=== PATIENT | female | born 1985 | race Caucasian/White ===

== ENCOUNTER → 2019-12-15 15:50 | Outpatient (BNVA) | payer BC, SELFPAY | PROVIDERS: Family Provider Family Medicine; PCP Family Medicine; Visit Provider Obstetrics & Gynecology | DX: N90.89 Other specified noninflammatory disorders of vulva and perineum (principal); N89.8 Other specified noninflammatory disorders of vagina | CPT/HCPCS: 87070 ==

== ENCOUNTER → 2019-12-24 10:38 | Outpatient (BNVA) | payer BC, SELFPAY | PROVIDERS: Family Provider Family Medicine; PCP Family Medicine; Visit Provider Obstetrics & Gynecology | DX: R10.32 Left lower quadrant pain (principal) | CPT/HCPCS: 76830 ==

== ENCOUNTER → 2020-01-20 11:57 | Outpatient (BNVA) | payer BC, SELFPAY | PROVIDERS: Family Provider Family Medicine; PCP Family Medicine; Visit Provider Obstetrics & Gynecology | DX: N90.89 Other specified noninflammatory disorders of vulva and perineum (principal) | CPT/HCPCS: 88305 ==

== ENCOUNTER 2020-10-07 21:06 | Emergency (ER) | payer BC, SELFPAY ==
[2020-10-07 21:13] VITALS: BP 155/98; PULSE 77; RESP 16; TEMP 36.6; O2SAT 99; BMI 18.3
--- NOTE | 2020-10-07 21:26 | XRR_ITS ---
PROCEDURE INFORMATION: Exam: XR Chest, 1 View Exam date and time: 10/07/2020 9:33 PM Age: 35 years old Clinical indication: Shortness of breath; Chest pain; Type not specified; Additional info: Cp, SOB, elevated BP TECHNIQUE: Imaging protocol: XR of the chest Views: 1 view. COMPARISON: No relevant prior studies available. FINDINGS: Lungs: Unremarkable. No consolidation. Pleural spaces: Unremarkable. No pleural effusion. No pneumothorax. Heart/Mediastinum: Unremarkable. No cardiomegaly. Bones/joints: Unremarkable. XR/XR chest 1V portable [id number] IMPRESSION: No acute findings.
--- NOTE | 2020-10-07 21:26 | ECG_ITS ---
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 Measurements Intervals [place] Rate: 68 P: 78 IL: 154 QRS: 59 QRSD: 86 T: 22 QT: 383 QTc: 410 Interpretive Statements SINUS RHYTHM WITH OCCASIONAL SUPRAVENTRICULAR PREMATURE COMPLEXES MODERATE T-WAVE ABNORMALITY, CONSIDER INFERIOR ISCHEMIA [-0.1+ mV T WAVE IN II/aVF] No previous ECG available for comparison Electronically Signed On 10-08-2020 16:05:35 CRAB CATCHER by Kendall Grissom M.D. [id number] f
== END 2020-10-08 00:01 ==
LOC: ER 22:10
PROVIDERS: PCP Family Medicine
DX: Z53.21 Procedure and treatment not carried out due to patient leaving prior to being seen by health care provider (principal)
CPT/HCPCS: 71045; 93005; 99281

== ENCOUNTER 2020-10-08 08:52 | Outpatient (CLI) | payer BC, SELFPAY ==
--- NOTE | 2020-10-08 09:00 | CT_ITS ---
WS: [id number] CTA THORACIC AORTA WITH CONTRAST. HISTORY: DYSPNEA TECHNIQUE: CT imaging of the thorax is performed with and without contrast. After noncontrast imaging is performed, CT angiogram is performed during injection of Omnipaque 350; 95 mL IV.. Sagittal and c oronal reconstructions, sagittal and coronal MIP imaging is submitted. All CT scans at [facility] use at least one of these dose optimization techniques: automated exposure control; mA and/o r kV adjustment per patient size (includes targeted exams where dose is matched to clinical indicatio n); or iterative reconstruction. DLP: 332.38 mGy.cm COMPARISON: None available. Normal size thoracic aorta. No aneurysm or dissection. No significant plaque. Good opacification of t he pulmonary artery. Normal size pulmonary artery with no filling defects. Heart size is normal. No p ericardial or pleural effusions. No thrombus in the LEFT atrial appendage. Normal aortic arch in norm al great vessel origins. Lungs are clear. No pneumonia or CHF. No groundglass opacifications or bronchiectasis. Bronchial airw ays normal. Normal bronchial tree. CT/CT angio chest [id number] IMPRESSION: 1. Normal thoracic aorta. 2. Normal pulmonary artery. 3. No pneumonia. Normal lungs.
[2020-10-08] MEDS: iohexol 350 mg/mL 100 mL Btl IV (09:32)
== END 2020-10-08 08:53 | disposition home or self-care (01) ==
LOC: RADWPI 08:58
PROVIDERS: PCP Family Medicine; Visit Provider Family Medicine
DX: R06.00 Dyspnea, unspecified (principal)
CPT/HCPCS: 71275; Q9967

== ENCOUNTER → 2021-07-29 08:45 | Outpatient (BNVA) | payer OTHER, BC, SELFPAY | PROVIDERS: PCP Family Medicine; Visit Provider Obstetrics & Gynecology | DX: N89.8 Other specified noninflammatory disorders of vagina (principal) | CPT/HCPCS: 82670; 83001 ==

== ENCOUNTER → 2022-08-02 11:47 | Outpatient (BNVA) | payer BC, SELFPAY | PROVIDERS: PCP Family Medicine; Visit Provider Family Medicine | DX: E03.9 Hypothyroidism, unspecified (principal) | CPT/HCPCS: 84443 ==

== ENCOUNTER 2023-07-24 16:01 | Outpatient (CLI) | payer OTHER, SELFPAY ==
[2023-07-24 22:43] LABS: Thyroid Stimulating Hormone 2.21 uIU/mL (0.27-4.20)
== END 2023-07-24 16:02 | disposition home or self-care (01) ==
LOC: LAB 16:01
PROVIDERS: PCP Family Medicine; Visit Provider Family Medicine
DX: E03.9 Hypothyroidism, unspecified (principal)
CPT/HCPCS: 36415; 84443

== ENCOUNTER → 2023-08-17 07:20 | Outpatient (BNVA) | payer OTHER, SELFPAY | PROVIDERS: PCP Family Medicine; Visit Provider Clinical Nurse Specialist Adult Health | DX: R30.0 Dysuria (principal); N30.00 Acute cystitis without hematuria | CPT/HCPCS: 81000 ==

== ENCOUNTER → 2023-10-23 14:47 | Outpatient (BNVA) | payer OTHER, SELFPAY | PROVIDERS: PCP Family Medicine; Visit Provider Nurse Practitioner Women's Health | DX: I49.9 Cardiac arrhythmia, unspecified (principal); R07.9 Chest pain, unspecified | CPT/HCPCS: 93005 ==

== ENCOUNTER 2023-10-24 07:22 | Emergency (ER) | payer OTHER, SELFPAY ==
[2023-10-24 07:26] VITALS: BP 158/107; PULSE 93; RESP 18; TEMP 36.6; O2SAT 100; BMI 18.3
--- NOTE | 2023-10-24 07:28 | ECG_ITS ---
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 Measurements Intervals [place] Rate: 91 P: 75 ID: [id number] QRS: 44 QRSD: 74 T: -3 QT: 350 QTc: 432 Interpretive Statements SINUS RHYTHM WITH FREQUENT SUPRAVENTRICULAR PREMATURE COMPLEXES POSSIBLE LEFT ATRIAL ENLARGEMENT [-0.1mV P-WAVE IN V1/V2] SEPTAL MYOCARDIAL INFARCTION , PROBABLY OLD [40+ ms Q WAVE IN V1/V2] INTERPRETATION BASED ON A DEFAULT AGE OF 40 YEARS Compared to ECG 10/23/2023 15:04:48 Myocardial infarct finding now present Electronically Signed On 10-24-2023 14:33:25 FOOD COUNSELOR by Bret Rosenthal M.D. [id number]
[2023-10-24 07:34] VITALS: BP 158/107; PULSE 94; RESP 17; O2SAT 99
--- NOTE | 2023-10-24 07:34 | XRR_ITS ---
PROCEDURE INFORMATION: Exam: XR Chest Exam date and time: 10/24/2023 7:51 AM Age: 38 years old Clinical indication: Cough and dyspnea; Additional info: Dyspnea/cough TECHNIQUE: Imaging protocol: Radiologic exam of the chest. Views: 1 view. COMPARISON: CT angio chest [id number] 10/08/2020 9:44 AM FINDINGS: Lungs: Unremarkable. No consolidation. Pleural spaces: Unremarkable. No pleural effusion. No pneumothorax. Heart/Mediastinum: Unremarkable. No cardiomegaly. Bones/joints: Unremarkable. XR/XR chest 1V portable [id number] IMPRESSION: No acute findings.
[2023-10-24 07:46] LABS: Basophils # 0.1 10^3/uL (0.0-0.1); Basophils % 0.9 %; Eosinophils # 0.1 10^3/uL (0.0-0.8); Eosinophils % 2.4 %; Hematocrit 42.3 % (36-47); Lymphocytes # 1.8 10^3/uL (0.8-4.8); Lymphocytes % 31.3 %; Mean Corpuscular HGB Conc 34.5 g/dL (30-55); Mean Corpuscular Hemoglobin 30.9 pg (27-33); Mean Corpuscular Volume 89.4 fl (85-98); Mean Platelet Volume 10.7 fL (7.4-10.4); Monocytes # 0.3 10^3/uL (0.2-0.9); Monocytes % 4.3 %; Neutrophils # 3.56 10^3/uL (1.8-7.7); Neutrophils % 60.9 %; Nucleated Red Blood Cells % 0 %; Platelet Count 305 10^3/cmm (157-399); Red Blood Count 4.73 10^6/uL (3.85-5.65); Red Cell Distribution Width 11.8 % (12.1-15.1); White Blood Count 5.84 10^3/uL (3.29-11.43)
[2023-10-24 08:05] LABS: Troponin(5th) Baseline < 6 ng/L (0-10)
[2023-10-24 08:07] LABS: Alanine Aminotransferase 15 U/L (0-33); Albumin Level 4.6 g/dL (3.5-5.2); Alkaline Phosphatase 60 U/L (35-105); Anion Gap 15.1 (5-19); Aspartate Amino Transferase 15 U/L (0-32); Blood Urea Nitrogen 13 mg/dL (6-20); Carbon Dioxide 24 mmol/L (22-29); Chloride 103 mmol/L (98-107); Creatinine Clr Calc Pharmacy 116.0903; Globulin 2.6 g/dL (1.3-4.6); Glomerular Filtration Rate 138.1 mL/min (90-130); Glucose 114 mg/dL (65-115); Osmolality Calculated 287 mOsm/kg (285-295); Potassium 4.1 mmol/L (3.5-5.1); Sodium 138 mmol/L (136-145); Total Bilirubin 0.9 mg/dL (0.15-1.2); Total Protein 7.2 g/dL (6.6-8.7)
--- NOTE | 2023-10-24 08:25 | W.ED.CHESTPA ---
HPI - Chest Pain General: Chief Complaint: Chest Pain Stated Complaint: chest pain Source: patient Mode of arrival: ambulatory History of Present Illness: 38-year-old female presents to the emergency room complaint of chest pain. Localizes pain to the upper chest along the left parasternal border. Has had similar episodes in the past was thought to be anxiety issues. Pain has been constant last couple of days and is worsening slightly no radiation of the pain no associated shortness of breath no nausea vomiting or diaphoresis. No history of DVT or PE. She was recently seen by nurse practitioner for gynecology and reported having intermittent irregular heartbeat. Here on the monitor she has occasional PVCs. She has no knowledge of her family history as pertaining to coronary artery disease. She previously had a left breast mass noted on physical exam and had a follow-up mammogram at [facility] and it was thought to be benign on follow-up in her doctor's office there was no significant change. She denies any recent fever sweats chills or productive cough. Patient did report a headache overnight for which she took a sumatriptan for which she has used in the past. MD complaint: chest pain Onset (ago): day(s) Prior episodes: Yes Onset: during rest Pain location: left chest Pain radiation: none Quality: sharp Relieving factors: nothing Exacerbating factors: nothing Associated symptoms: Deny abdominal pain, diaphoresis, dyspnea, fever(s), leg edema, nausea, palpitations, sense of impending doom, syncope or vomiting Treatment prior to arrival: none Review of Systems Const: Denies: fever(s), chills or diaphoresis Card: Denies: chest pain, palpitations or syncope Resp: Denies: dyspnea GI: Denies: abdominal pain, nausea or vomiting : Denies: dysuria, urinary frequency or urinary urgency Musc: Denies: neck pain or back pain Skin/Breast: Denies: rash PFSH ED PFSH: Medical History Migraines Currently taking medication-sumatriptan and amitriptyline for migraines being managed by Dr. Porras. She also sees a neurologist Dr. Tijerina In [facility]. No pertinent past medical history Denies diabetes, asthma, hypertension, seizures, DVT/PE. PCP: Dr. Porras Hypothyroidism Diagnosed in her 20s and is currently on medication managed by her primary care provider Surgical History S/P hysterectomy (~2009) laparoscopic assisted vaginal hysterectomy and cystoscopy for endometriosis, enlarged uterus, menorrhagia, dysmenorrhea. Performed by Dr. Subramanian at the anovulatory surgical center. ---->Pathology showed cervix-normal, cul-de-sac peritoneum-normal, lower uterine segment/endocervical canal-normal, endometrium-proliferative endometrium, myometrium-normal, uterus weighed 122 g. ---->(Operative report and pathology have been scanned into all scripts. S/P tonsillectomy and adenoidectomy Done at age 5 Family History Unknown Unknown family medical history Patient does not know her biological family or her family history. Physical Exam Const: COMMON NORMALS: no acute distress GENERAL APPEARANCE: cooperative and comfortable ORIENTATION/CONSCIOUSNESS: Yes awake, Yes oriented to person, Yes oriented to place and Yes oriented to time HENMT: COMMON NORMALS: normocephalic, atraumatic and hearing grossly normal bilaterally HEAD & SCALP: normocephalic and atraumatic Resp: COMMON NORMALS: normal respiratory effort, No retractions, No use of accessory muscles and clear to auscultation bilaterally AUSCULTATION: clear to auscultation bilaterally Cardio: COMMON NORMALS: regular rate, regular rhythm and No murmurs present (Cardio) RATE: regular rate RHYTHM: regular rhythm GI: COMMON NORMALS: Soft to palpation and No hepatosplenomegaly present AUSCULTATION: Yes normoactive bowel sounds PALPATION: Yes Soft to palpation, No Tenderness to palpation present (GI), No Guarding due to palpation present (GI) and Yes No hepatosplenomegaly present Extremity: COMMON NORMALS: normal to inspection, capillary refill normal, no clubbing, cyanosis or edema, no calf tenderness and no pedal edema Neuro: SENSORIUM/ORIENTATION: Yes oriented to person, Yes oriented to place and Yes oriented to time Skin: COMMON NORMALS: no rashes or lesions noted GENERAL SKIN EXAM: no rashes or lesions noted Course Vital Signs: Vital signs: Vital Signs Temperature 97.9 F 10/24/23 07:26 Pulse Rate 85 10/24/23 11:17 Respiratory Rate 18 10/24/23 11:17 Blood Pressure 122/82 10/24/23 11:17 Pulse Oximetry 96 10/24/23 11:17 Oxygen Delivery Me thod Room Air 10/24/23 07:34 MDM - Chest Pain Medical Decision Making Labs and imaging reviewed. EKG does not show any acute ST changes on the rhythm strip we did see a fair number of PVCs and ectopic atrial foci however she is completely asymptomatic over the whole time she is here. Reviewed the findings with the patient. She does have a bit of a headache as well we gave her Toradol and Benadryl before she left. Given the overall findings recommend just observing. I think her chest pain is noncardiac there is no evidence of a PE your D-dimer is low her heart rate and oxygen saturations are low. Chest x-ray was otherwise unremarkable with no evidence of pneumothorax or pneumonia. There is no widening of the mediastinum. Patient is comfortable this will discharge home and follow-up with her primary care doc if she has palpitations she can consider discussing with her primary care doctor and get a Holter monitor done. Medical Records I reviewed the patient's medical records. Lab Data I reviewed the patient's lab results. 10/24/23 07:34 10/24/23 07:34 Radiology Impressions Chest X-Ray 10/24/23 07:34 IMPRESSION: No acute findings. Laboratory Results WBC 5.84 10^3/uL (3.29-11.43) 10/24/23 07:34 RBC 4.73 10^6/uL (3.85-5.65) 10/24/23 07:34 Hgb 14.60 g/dL (11.27-16.99) 10/24/23 07:34 Hct 42.3 % (36-47) 10/24/23 07:34 MCV 89.4 fl (85-98) 10/24/23 07:34 MCH 30.9 pg (27-33) 10/24/23 07:34 MCHC 34.5 g/dL (30-55) 10/24/23 07:34 RDW 11.8 % (12.1-15.1) L 10/24/23 07:34 Plt Count 305 10^3/cmm (157-399) 10/24/23 07:34 MPV 10.7 fL (7.4-10.4) H 10/24/23 07:34 Neut % (Auto) 60.9 % 10/24/23 07:34 Lymph % (Auto) 31.3 % 10/24/23 07:34 Boundary % (Auto) 4.3 % 10/24/23 07:34 Eos % (Auto) 2.4 % 10/24/23 07:34 Baso % (Auto) 0.9 % 10/24/23 07:34 Neut # (Auto) 3.56 10^3/uL (1.8-7.7) 10/24/23 07:34 Lymph # (Auto) 1.8 10^3/uL (0.8-4.8) 10/24/23 07:34 Boundary # (Auto) 0.3 10^3/uL (0.2-0.9) 10/24/23 07:34 Eos # (Auto) 0.1 10^3/uL (0.0-0.8) 10/24/23 07:34 Baso # (Auto) 0.1 10^3/uL (0.0-0.1) 10/24/23 07:34 Nucleated RBC % (auto) 0 % 10/24/23 07:34 Nucleated RBCs # 0.0 /100WBC 10/24/23 07:34 D-Dimer 0.36 ug/mLFEU (0-0.59) 10/24/23 07:34 Sodium 138 mmol/L (136-145) 10/24/23 07:34 Potassium 4.1 mmol/L (3.5-5.1) 10/24/23 07:34 Chloride 103 mmol/L (98-107) 10/24/23 07:34 Carbon Dioxide 24 mmol/L (22-29) 10/24/23 07:34 Anion Gap 15.1 (5-19) 10/24/23 07:34 BUN 13 mg/dL (6-20) 10/24/23 07:34 Creatinine 0.5 mg/dL (0.5-0.9) 10/24/23 07:34 GFR Calculation 138.1 mL/min (90-130) H 10/24/23 07:34 Glucose 114 mg/dL (65-115) 10/24/23 07:34 Calculated Osmolality 287 mOsm/kg (285-295) 10/24/23 07:34 Calcium 9.0 mg/dL (8.5-10.5) 10/24/23 07:34 Total Bilirubin 0.9 mg/dL (0.15-1.2) 10/24/23 07:34 AST 15 U/L (0-32) 10/24/23 07:34 ALT 15 U/L (0-33) 10/24/23 07:34 Alkaline Phosphatase 60 U/L (35-105) 10/24/23 07:34 Troponin T Baseline < 6 ng/L (0-10) 10/24/23 07:34 Troponin T 120 Minute 6.00 ng/L (0-10) 10/24/23 09:42 Delta Troponin T 0.60562 ABS# (0-10) 10/24/23 09:42 Total Protein 7.2 g/dL (6.6-8.7) 10/24/23 07:34 Albumin 4.6 g/dL (3.5-5.2) 10/24/23 07:34 Globulin 2.6 g/dL (1.3-4.6) 10/24/23 07:34 All radiology interpretation(s) finalized by discharge Discharge Plan Discharge Patient Disposition: Home Clinical Impression: Atypical chest pain, Frequent PVCs Migraines Qualifiers: Migraine type: menstrual Status migrainosus presence: without status migrainosus Intractability: intractable Qualified Code(s): G43.839 - Menstrual migraine, intractable, without status migrainosus Condition: Stable Prescriptions: No Action sumatriptan succinate 100 mg tablet See Rx Instructions .ROUTE .COMPLEX Qty: 9 11RF Dose Instruction: TAKE 1/2 (ONE-HALF) TABLET BY MOUTH EVERY 2 HOURS NEEDED FOR HEADACHE (MAX OF 2 TABS PER DAY) Rx Instructions: TAKE 1/2 (ONE-HALF) TABLET BY MOUTH EVERY 2 HOURS NEEDED FOR HEADACHE (MAX OF 2 TABS PER DAY) Euthyrox 75 mcg tablet 75 mcg PO QAM estradiol 0.5 mg tablet See Rx Instructions .ROUTE .COMPLEX Rx Instructions: TAKE 1 TABLET BY MOUTH ONCE DAILY FOR 25 DAYS THEN OFF FOR 5 DAYS THEN REPEAT CYCLE Discharge Orders: Discharge ED (Routine); Ordered 10/24/23 Ordered By: Won Engel Referrals: David Porras MD [Primary Care Provider] - Discharge Diet: Usual diet Discharge Activity: Increase activity as tolerated Patient Instructions: Opioid Safety, Pain Management Activity Restrictions/Additional Instructions: Thank you for choosing [facility] for your healthcare needs today. Please realize this is an emergency room and that we are providing you with a medical screening exam and this may not be complete and all inclusive of all the testing and or work up that you may need to determine your ailment or severity of your illness. It is very important that you follow up as instructed or that you return to the Emergency Department should you have concerns or if your condition changes or worsens in any way. You were seen today for atypical chest pain your cardiac enzymes and EKG were normal your D-dimer was negative your chest x-ray was normal. These things rule out the most significant concerning diagnosis for chest pain. You were noted on the monitor to have relatively frequent PVCs but you were for the most part asymptomatic of these. If you notice irregular heartbeats or palpitations contact your primary care doctor for further evaluation. Coding Level of Care Code ED Wood Router for Kristel Tate
[2023-10-24 08:30] LABS: D Dimer 0.36 ug/mLFEU (0-0.59)
[2023-10-24 08:38] VITALS: BP 135/93; PULSE 83; RESP 19; O2SAT 98
[2023-10-24 10:14] LABS: Troponin 5 2HR Delta 0.00001 ABS# (0-10)
--- NOTE | 2023-10-24 10:19 | ECG_ITS ---
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 Measurements Intervals [place] Rate: 73 P: 64 ME: 152 QRS: 50 QRSD: 72 T: 41 QT: 383 QTc: 425 Interpretive Statements SINUS RHYTHM WITH OCCASIONAL SUPRAVENTRICULAR PREMATURE COMPLEXES SEPTAL MYOCARDIAL INFARCTION , OF INDETERMINATE AGE [40+ ms Q WAVE IN V1/V2] Compared to ECG 10/24/2023 07:28:41 No significant changes Electronically Signed On 10-24-2023 10:57:34 COMMERCIAL HELICOPTER PILOT by Bret Rosenthal M.D. [id number]
[2023-10-24] MEDS: diphenhydrAMINE 50 mg/mL SDV 1mL 25 MG IVP (11:04)
[2023-10-24] MEDS: ketorolac 30 mg/mL INJ IVP (11:04)
[2023-10-24 11:16] VITALS: BP 122/82; PULSE 85; RESP 18; O2SAT 96
[2023-10-24 11:17] VITALS: BP 122/82; PULSE 85; RESP 18; O2SAT 96
== END 2023-10-24 11:25 | disposition home or self-care (01) ==
PROVIDERS: Emergency Provider Family Medicine; PCP Family Medicine
DX: R07.89 Other chest pain (principal); I49.3 Ventricular premature depolarization; G43.839 Menstrual migraine, intractable, without status migrainosus
CPT/HCPCS: 36415; 71045; 80053; 84484; 85025; 85378; 93005; 96374; 96375; 99285; J1200; J1885

== ENCOUNTER 2024-09-12 08:40 | Outpatient (CLI) | payer OTHER, SELFPAY ==
--- NOTE | 2024-09-12 10:54 | MM_ITS ---
WS: [id number] VIEWS: MLO and CC views both breasts. 3D digital tomosynthesis is also included in this exam. Comparison made with prior exam of 11/03/2022. Findings: The breasts are extremely dense, which lowers the sensitivity of mammography. No sign of suspicious mass, tumor calcification or architectural distortion. MM/MM scr BI tomosynthesis [id number] Impression: BI-RADS: 2 - Benign FOLLOW-UP: 1 Year Follow-up This mammogram was also analyzed by the Computer Aided Detection System R2 Imag e Restorative Rehab Aide.
== END 2024-09-12 08:41 | disposition home or self-care (01) ==
PROVIDERS: PCP Family Medicine; Visit Provider Nurse Practitioner Women's Health
DX: Z12.31 Encounter for screening mammogram for malignant neoplasm of breast (principal); R92.343 Mammographic extreme density, bilateral breasts
CPT/HCPCS: 77063; 77067

== ENCOUNTER → 2024-11-04 15:04 | Outpatient (BNVA) | payer OTHER, SELFPAY | PROVIDERS: PCP Family Medicine; Visit Provider Internal Medicine Cardiovascular Disease | DX: R07.9 Chest pain, unspecified (principal); R94.31 Abnormal electrocardiogram [ECG] [EKG] | CPT/HCPCS: 93005 ==

== ENCOUNTER 2024-11-06 06:00 | Outpatient (CLI) | payer OTHER, SELFPAY | END 2024-11-06 12:00 | disposition home or self-care (01) | LOC: LAB 11-25 15:57 | PROVIDERS: PCP Family Medicine; Visit Provider Nurse Practitioner Women's Health | DX: N91.2 Amenorrhea, unspecified (principal) | CPT/HCPCS: 36415; 82670; 83001 ==